=== PATIENT | male | born 1960 | race Caucasian/White ===

== ENCOUNTER 2023-03-05 20:00 | Emergency (ER) | payer OTHER ==
[~2023-03-05] VITALS: Ht 193 cm; Wt 86.2 kg
[2023-03-05] MEDS ORDERED: ZESTRIL10 M1 (20:17)
[2023-03-05] MEDS ORDERED: CORGARD40 MG (20:18)
[2023-03-05] MEDS ORDERED: ZOCOR20 MG (20:18)
== END 2023-03-06 01:40 | disposition home or self-care (01) ==
LOC: ER 20:00
DX: R07.9 Chest pain, unspecified (principal); E03.9 Hypothyroidism, unspecified; I10 Essential (primary) hypertension; N40.0 Benign prostatic hyperplasia without lower urinary tract symptoms; G47.33 Obstructive sleep apnea (adult) (pediatric)